=== PATIENT | female | born 1980 | race Caucasian/White ===

== ENCOUNTER 2016-10-10 06:02 | Day surgery (SDC) | payer BC ==
[~2016-10-10] VITALS: Ht 170.2 cm; Wt 79.4 kg
[2016-10-10] MEDS ORDERED: CEFAZOLIN SOD 1 GM in D5W 50 ML IV ONE (07:00)
[2016-10-10] MEDS ORDERED: LR 1,000 ML IV SCH (07:55)
[2016-10-10] MEDS ORDERED: MORPHINE 2 MG/ML INJ. SYRINGE IVP PRN ×3 (08:00)
[2016-10-10] MEDS ORDERED: METOCLOPRAMIDE HCL 10 MG/2 ML VIAL IVP PRN (08:00)
[2016-10-10] MEDS ORDERED: OXYCODONE/ACETAMINOPHEN 5-325 TABLET PO PRN (08:15)
[2016-10-10] MEDS ORDERED: ONDANSETRON HCL 4 MG/2 ML VIAL IVP PRN (08:15)
[2016-10-10] MEDS ORDERED: HYDROcodone/ACETAMIN 5-325 MG TAB (NORCO/ VICODIN) PO PRN (08:15)
[2016-10-10 09:15] VITALS: BP_SYST 112
[2016-10-10] MEDS ORDERED: OXYCODONE/ACETAMINOPHEN 5-325 TABLET ONE (09:20)
[2016-10-10] MEDS ORDERED: NS 1000 ML BAG IV ONE (14:00)
[2016-10-10] MEDS ORDERED: LR 1,000 ML IV.SOLN IV ONE (14:00)
[2016-10-10] MEDS ORDERED: KETOROLAC TROMETHAMINE 30 MG VIAL ONE (14:00)
[2016-10-10] MEDS ORDERED: MIDAZOLAM HCL 5 MG/5 ML VIAL ONE (14:00)
[2016-10-10] MEDS ORDERED: ONDANSETRON HCL 4 MG/2 ML VIAL ONE (14:00)
[2016-10-10] MEDS ORDERED: PROPOFOL 200MG/ 20ML VIAL (DIPRIVAN) IV ONE (14:00)
[2016-10-10] MEDS ORDERED: CEFAZOLIN 1 GM IVPB PREMIX 50 ML IV ONE (14:00)
[2016-10-10] MEDS ORDERED: SEVOFLURANE 15 MIN GAS INH ONE (14:00)
[2016-10-10] MEDS ORDERED: ROCURONIUM BROMIDE 10 MG/ML (ZEMURON) ONE (14:00)
[2016-10-10] MEDS ORDERED: PHENYLEPHRINE HCL 10 MG/ML VIAL (NEOSYNEPHRINE) ONE (14:00)
[2016-10-10] MEDS ORDERED: fentaNYL CITRATE 250 MCG/5 ML AMP ONE (14:00)
== END 2016-10-10 11:55 | disposition home or self-care (01) ==
LOC: SDS 06:02 → SMU 07:30 → SDS 11:55
PROVIDERS: ATTEND Specialist
DX: D25.0 Submucous leiomyoma of uterus (principal)
CPT/HCPCS: 58300; 58561; 88305; C1819; J0690 ×2; J1885; J2250; J2370; J2405; J2704; J3010; J7030; J7060; J7120